=== PATIENT | male | born 1945 | race Caucasian/White ===

== ENCOUNTER → 2019-02-09 13:07 | Outpatient (CLI) | payer MEDICARE, SELFPAY ==
--- NOTE | 2019-02-09 | DI.MRI.S_ITS ---
PROCEDURE: MR KNEE RT WO CON INDICATIONS: Unilateral primary osteoarthritis, right knee TECHNIQUE: Noncontrast sagittal PD fast spin echo and T2 fast spin echo with fat saturation, sagittal 3-D FLASH with fat saturation; coronal T1 spin echo and PD fast spin echo with fat saturation, and axial PD fast spin echo with fat saturation through the knee. COMPARISON: None. FINDINGS: Image quality: Excellent. Menisci: There is near-complete absence of the lateral meniscus compatible severe chronic degenerative tearing. A Cruciate ligaments: The anterior cruciate ligament is absent compatible with chronic tear. The posterior cruciate ligament appears intact. The medial meniscus appears intact. Medial structures: The medial collateral ligament appears intact. The posterior oblique ligament, semimembranosus tendon insertions, oblique popliteal ligament, and meniscocapsular junction appear intact. Visualized portions of the pes anserinus tendons appear normal. No abnormal bursal fluid. Lateral structures: The lateral collateral ligament, long and short heads of the biceps femoris tendon appear intact. The popliteus tendon appears normal; the popliteofibular ligament appears intact. The posterosuperior and anteroinferior popliteomeniscal fascicles appear intact. The arcuate and fabellofibular ligaments appear intact, on either side of the lateral inferior geniculate artery. Iliotibial band appears normal. Anterior structures: The quadriceps and patellar tendons appear intact. The quadriceps tendon is mildly thickened with increased internal signal compatible with moderate tendinopathy. Patellar alignment is normal. No femoral trochlear dysplasia or ventral trochlear prominence. No edema in the infrapatellar fat pad. Bones and cartilage: No bone marrow contusions or fractures. Tricompartmental osteophytosis. There is full-thickness loss of articular cartilage in the lateral compartment. Moderate thinning and fissuring of articular cartilage in the patellofemoral compartment. There is mild thinning of articular cartilage in the medial compartment. Joint space: There is a large joint effusion. No Aldrich's cyst. Normal appearing synovial plicae are incidentally noted. IMPRESSION: 1. Severe lateral compartment, moderate patellofemoral compartment and mild medial compartment osteoarthritis with full-thickness loss of articular cartilage in the lateral compartment. 2. Chronic anterior cruciate ligament tear. 3. 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 4. Moderate quadriceps tendinopathy. 5. Large joint effusion. Dictated by: Seema Segal MD, PhD on 02/09/2019 at 15:46 Approved by: Seema Segal MD, PhD on 02/10/2019 at 10:55
== END ==
PROVIDERS: PCP Family Medicine; Visit Provider Orthopaedic Surgery
DX: M17.11 Unilateral primary osteoarthritis, right knee (principal); S83.511A Sprain of anterior cruciate ligament of right knee, initial encounter; S83.281A Other tear of lateral meniscus, current injury, right knee, initial encounter; M25.461 Effusion, right knee; M67.951 Unspecified disorder of synovium and tendon, right thigh
CPT/HCPCS: 73721

== ENCOUNTER 2019-03-16 14:23 | Observation (INO) | payer MEDICARE, SELFPAY ==
[2019-03-01 08:55] VITALS: BMI 20.7
[2019-03-15] VITALS (12 sets, daily range): BP systolic 142–171; BP diastolic 73–87; PULSE 63–87; RESP 13–18; TEMP 36.1–36.6; O2SAT 96–100; BMI 20.7
--- NOTE | 2019-03-15 11:10 | PM.PREOP ---
Pre-operative Note Interval Note History & Physical reviewed/Exam performed by Physician: Yes Changes to H&P: No
--- NOTE | 2019-03-15 11:13 | P.OP_ITS ---
Operative Date/Time/Diagnoses Date of procedure: 03/15/19 Time of procedure: 14:30 Pre-op diagnosis: Right knee osteoarthritis Post-op diagnosis: same Procedure & Clinicians Procedure: Right total knee arthroplasty Same procedure as scheduled: Yes Indications: The patient presents today for total knee arthroplasty after failure of conservative treatment. The nature of the procedure including the risks and benefits, alternatives, postoperative course and expected outcome were discussed and all questions answered. Consent was obtained. Operative site confirmed and marked. Surgeon: Papo Rodriguez Client Coordinator: Lionel Martinez Anesthesia Type: Spinal, Peripheral nerve block and Local Operative Notes Findings: Severe osteoarthritis with valgus alignment Closure Type: primary Specimen(s): none sent Prosthetic devices, grafts, tissues, transplants, or devices: [employer] BCS: 7 femoral component, 5 tibial component, 9 mm BCS polyethylene tray and 32 mm round patella Applied: implant(s) Estimated Blood Loss (mL): 20 Blood products transfused: none Tourniquet time (min): 62 Procedure in detail: The patient was taken to the operative suite and placed under spinal anesthesia with an adductor nerve block. The patient was given prophylactic antibiotics prior to surgery. The patient was also given tranexamic acid, 1 g, just prior to surgery for postoperative hemostasis. The lateral knee was prepped and the joint injected with 20 mL of 1% Lidocaine with epinephrine. The knee was then prepped and draped in usual sterile fashion. The leg was exsanguinated with an Esmarch dressing and the tourniquet raised to 250 torr. A 15 cm anterior incision was made. Next a medial trivector arthrotomy was made. The extensor mechanism was marked to ensure accurate repair. Initial exposing dissection was carried out medially and laterally. The knee was then extended and the patellar thickness was measured and a cut made removing approximately 9 mm of bone with a goal of restoring normal patellar thickness. The patella was then sized and drilled. Some excess lateral bone was excised and the patellofemoral ligament released. The tourniquet was then released. The knee was then flexed and the [employer] femoral guide was placed. The anterior pins were placed and the distal rotation holes drilled. The distal cutting guide was placed and a +2 distal femoral cut was made due to his flexion contracture. The templating cutting block was then placed and the anterior, posterior and chamfer cuts made. The [employer] tibial guide was placed and the alignment checked along the axis of the proximal tibial with a talib. The proximal tibial cut was then made with an oscillating saw. All meniscus and bony debris was then removed. Flexion extension gaps were checked. No specific balancing was required other than routine exposure and removal of osteophytes. The soft tissues were then injected with a combination of 20 mL of half percent Marcaine with epinephrine and 20 mL of Exparel. The trial components were then placed. The knee went into full extension and flexion beyond 120?. There was excellent medial- lateral balance throughout motion. Patellar tracking was excellent. The trial components were removed and size is confirmed for the final implants. The knee was then exsanguinated with an Esmarch dressing and the tourniquet reapplied for cementing. The knee was cleansed with Pulsavac irrigation and dried. The final components were cemented in with high viscosity vacuum mixed bone cement with antibiotics. The knee was held in extension and the patellar clamp until the cement had adequately cured. The knee was then irrigated with dilute Betadine solution. The extensor mechanism was closed with 5 interrupted #1 Vicryl sutures in 90 degrees of flexion. The joint was then injected with a combination of 1 g of tranexamic acid and 20 mL of quarter percent Marcaine with epinephrine. The subcutaneous tissue was closed with 2-0 Vicryl. The skin was closed with pablo and surgical adhesive. An Aquacel dressing and Thad wrap were then applied. Complications: none Condition: stable Disposition: PACU Plan for aftercare: [facility] protocol for total knee arthroplasty.
[2019-03-15] MEDS: LACTATED RINGERS 1,000 ML 42 ML IV ×2 (11:35→14:00)
--- NOTE | 2019-03-15 11:37 | DI.RAD.S_ITS ---
PROCEDURE: XR KNEE RT 1TO2V INDICATIONS: post op TECHNIQUE: 2 view(s) of the knee acquired. COMPARISON: None. FINDINGS: Bones: Patient is status post knee joint arthroplasty. Hardware components are in expected positions. Visualized bony structures are intact. Soft tissues: Overlying postoperative changes are noted. IMPRESSION: Expected postoperative appearance Dictated by: Mauri Agrawal M.D. on 03/15/2019 at 16:26 Approved by: Mauri Agrawal M.D. on 03/15/2019 at 16:27
[2019-03-15] MEDS: ACETAMINOPHEN 325 MG TABLET 975 MG PO ×3 (11:58→22:26)
[2019-03-15] MEDS: PREGABALIN 75 MG CAPSULE PO (11:58)
[2019-03-15] MEDS: CELECOXIB 200 MG CAPSULE PO (11:59)
--- NOTE | 2019-03-15 12:07 | SUR.OPER ---
Supine on padded OR bed. Pillow under head, arms secured on padded armboards <90 degree abduction. Safety belt across torso. Non-operative leg secured with tape over blanket over lower leg. Operative leg secured in DeMayo/Marbin positioner. Foam padded brace at thigh of operative leg.
[2019-03-15] MEDS: fentaNYL 100 MCG/2 ML INJ 50 MCG IV (12:45)
[2019-03-15] MEDS: MIDAZOLAM 2 MG/2 ML VIAL (12:47)
[2019-03-15] MEDS: CEFAZOLIN 2 GM/100 ML FROZ.PIGGY IV ×2 (12:55→20:37)
[2019-03-15] MEDS: LIDOCAINE 1% W/EPI INJ 20 ML INJ (13:35)
[2019-03-15] MEDS: BUPIVACAINE 0.25% W/ EPI (PF) 40 ML, BUPIVACAINE LIPOSOME 266 MG, SODIUM CHLORIDE 0.9% ... INJ (13:35)
[2019-03-15] MEDS: BUPIVACAINE 0.25% W/ EPI (PF) 20 ML, TRANEXAMIC ACID 1,000 MG, SODIUM CHLORIDE 0.9% 10 ML INJ (13:36)
[2019-03-15] MEDS: TRANEXAMIC ACID 1,000 MG VIAL 1000 MG INJ (13:37)
--- NOTE | 2019-03-15 16:01 | SUR.PHASEI ---
Pt transferred to room 221 in stable condition. Report given to NANI Tran at bedside
[2019-03-15] MEDS: LACTATED RINGERS 1,000 ML 125 ML IV (16:30)
[2019-03-15] MEDS: OXYCODONE IR 5 MG TABLET PO ×2 (17:26→19:57)
--- NOTE | 2019-03-15 19:40 | PC.NURSE ---
1600- Pt arrived to room 221 from PACU via bed. A/O x4, right knee aquacell/brie wrap, CDI, denies pain at this time, CMS- slight sensation to right foot, able to slightly wiggle toes, able to lift leg, left foot/leg wiggle toes, ankle pumps, full sensation, PP+, calf SCD's applied. VSS, 100%RA, LS clear, denies SOB. RFA LR @ 125. 1725- c/o pain 3-11/23, medicated with oxycodone 5mg PO, effective. Ate dinner, drinking fluids, reports comfortable. Bed alarm on, call light in reach.
[2019-03-15] MEDS: HYDROMORPHONE 0.5 MG INJ IV (20:30)
[2019-03-15] MEDS: SENNOSIDES 8.6 MG TABLET 17.2 MG PO (22:20)
[2019-03-15] MEDS: ASPIRIN EC 81 MG TABLET PO (22:25)
[2019-03-16] VITALS (7 sets, daily range): BP systolic 139–159; BP diastolic 72–89; PULSE 61–72; RESP 15–18; TEMP 35.8–36.9; O2SAT 94–99
[2019-03-16] MEDS: OXYCODONE IR 10 MG TABLET PO ×3 (01:11→12:09)
[2019-03-16] MEDS: LACTATED RINGERS 1,000 ML 125 ML IV ×3 (01:11→16:22)
--- NOTE | 2019-03-16 02:19 | PC.NURSE ---
Assumed care of pt at 2330 on 03/15/19. Pt sleeping during hand-off report. Awakens to voice for assessment. Drsg to R. Knee c/d/i with brie wrap. No drains present. CMS+. Denies numbness, able to wiggle toes and lift leg against gravity. PPP. brisk cap refill. BP elevated. Pt declines having hx of Htn. Medicating per mar for post-op pain. Pt reports medication has been effective. Using urinal in bed. Able to reposition independently in bed. This press writer enc to reposition frequently for PIP. Pt verbalized understanding. Refused to wear SCD's. VTE risks advised. Bed alarm on. Call light within reach.
[2019-03-16] MEDS: CEFAZOLIN 2 GM/100 ML FROZ.PIGGY IV (04:43)
[2019-03-16] MEDS: ONDANSETRON 4 MG/2 ML INJ IV ×2 (05:43→09:53)
[2019-03-16 05:59] LABS: Hematocrit 38.4 % (41-53); Hemoglobin 13.2 g/dL (13.5-17.5)
--- NOTE | 2019-03-16 10:06 | PC.NURSE ---
Addendum entered by Daniela Mera R.N. 03/16/19 13:17: Sat up in the chair for about an hour, assisted back to bed approx 1200 by this public relations writer. Medicated with 10 mg Oxycodone for R knee pain and 25 mg PO Vistaril for nausea at that time. Patient was able to eat about 50% of his lunch and is taking some PO liquids also. Resting quietly in bed at this time. Appears comfortable, no s/sx distress or discomfort. Respirations regular and unlabored. Emesis bag and call light within reach, bed alarm on. Prabha at bedside reading quietly. Addendum entered by Daniela Mera R.N. 03/16/19 10:48: Sitting up on edge of bed with PT, had emesis of 100 ml (yellowish fluid). Reports nausea seems a bit better after vomiting. Reports a little dizzy, BP sitting at edge of bed w/ systolic in the 130's. PT still with him at this time. Original Note: Shift summary: Awake and alert, oriented X3. Dressing to R knee C/D/I. Circulation/sensation WNL to BLE's, feet are pink and warm, cap refill <2 sec, PP+. Ice packs in place. C/O nausea, unable to eat breakfast, just taking very small sips of water. Patient initially hesitant to take anti-emetic, but eventually agreed to try Zofran which was admin by this public relations writer. IV fluids left running until nausea resolves and he's taking PO's without issue. Denies pain in RLE as long as I'm not moving it. Refusing SCD's r/t discomfort, ankle waving/pumping encouraged ongoing. Able to make needs known and calls appropriately. Light in reach, bed alarm on.
--- NOTE | 2019-03-16 10:15 | PT.IIE ---
Current Diagnoses Unilateral primary osteoarthritis, right knee (03/15/19) Surgery Performed Operation Date: 03/15/19 13:00 Actual Procedures p Total Knee Arthroplasty(Right) - Papo Rodriguez MD Surgical History (Last Updated 03/01/19 @ 09:19 by Laura Velez RN) H/O right knee surgery (Acute) H/O vasectomy (Acute) Hx of arthroscopy of left knee (Acute) Hx of arthroscopy of right knee (Acute) Hx of elbow surgery (Acute) Hx of shoulder surgery (Acute) Hx of transurethral resection of prostate (Acute) S/P foot surgery, right (Acute) Medical History (Last Updated 03/01/19 @ 09:19 by Laura Velez RN) Easy bruisability (Acute) Exercise-induced asthma (Acute) History of Mohs micrographic surgery for skin cancer (Acute) Osteoarthritis (Acute) Seasonal allergies (Acute) Sleep apnea (Acute) Physical Therapy Inpatient Evaluation/Re-Eval M1 PT/OT-IP Prior Functional Status Start: 03/16/19 13:03 Freq: NEEDED Status: Active Protocol: Document 03/16/19 10:15 AB (Rec: 03/16/19 13:14 AB [id number]) Medical Review Prior Functional Status Medical History Reviewed Yes Communication able to make needs known Mobility and Gait pt stated that he is indpeendent with all mobilities and ambulation without AD Social History Household Members spouse Living Arrangements House Number of Floors (Floors) One Floor Number of Stairs To Enter/Railing? ramp to enter Home Environment Tub/Shower Home Equipment Front Wheel Walker Raised Toilet Seat w/Armrests Shower Seat without Backrest Hand Held Shower Grab Bars In Shower Employment Status Retired M2 PT-IP Current Condition Start: 03/16/19 13:03 Freq: NEEDED Status: Active Protocol: Document 03/16/19 10:15 AB (Rec: 03/16/19 13:14 AB [id number]) Physical Therapy Current Condition Current Condition Evaluation Date 03/16/19 Treatment Diagnosis s/p R TKA; difficulty in walking Onset Date 03/15/19 Weight Bearing Status Weight Bearing Status Weight Bear as Tolerated M3 PT-IP Subjective Start: 03/16/19 13:03 Freq: NEEDED Status: Active Protocol: Document 03/16/19 10:15 AB (Rec: 03/16/19 13:14 [id number]) Subjective Physical Therapy Visit Type Type Initial Evaluation Visit Start Time 10:15 Visit Stop Time 10:59 Total Visit Minutes 44 Number of DENTAL APPLIANCE REPAIRER Visits 0 Physical Therapy Visit Comments Patient Comments pt c/o nausea but agreed to get out of bed Therapy Pain Assessment Pain When Pain Assessed During Mobility Pain Present Pain Present Pain Reported Location right knee Intensity 7 Scale Used Numeric (1 - 10) Pain Management Techniques Apply Cold Re-positioning Timing of Activity with Medications M4 PT-IP Mobility and Gait Start: 03/16/19 13:03 Freq: NEEDED Status: Active Protocol: Document 03/16/19 10:15 AB (Rec: 03/16/19 13:14 [id number]) PT-Bed Mobility Assessment Supine to Sit Supine to Sit Minimal Assistance Scooting Scooting to Edge of Bed Standby Assistance PT-Transfer Assessment Sit to and From Stand Sit to and from Stand Minimal Assistance 1 Person Assistance Use of Upper Extremities Equipment Transfer Assistive Device Gait Belt Front Wheeled Walker Orthotic/Prosthetic Devices or Brace: No Transfers Transfer Destination Chair Transfer Technique pt ambulated using FWW Transfer Ability Level of Assist Minimal Assistance 1 Person Assistance Use of Upper Extremities Comments Mobility Comments BP: 155/80 pt completed supine to sit min a and cues. pt was able to sit on EOB SBA . c/o nausea with (+) emesis. BP: 139/70. pt completed sit to stand min A and c/o continued dizziness. instructed to sit back down. BP checked: 151/78. pt agreed to get up again min A and ambulated towards the chair using FWW min A and cues. positioned pt on chair. call light and table placed within reach. BP: 152/80 Left pt with spouse in room Gait Assessment Gait Gait Assistance Required: Minimum Assistance Distance (Feet) 12 Able to Maintain Weight Bearing Status Yes During Gait Assistive Devices Assistive Device Gait Belt Front Wheeled Walker Orthotic/Prosthetic Devices or Brace: No Gait Deviations General Gait Pattern Antalgic Decreased Stride Length Decreased Feet Clearance Factors Limiting Gait Function Factors Limiting Gait Function Decreased Activity Tolerance Decreased Strength Pain Poor Balance Poor Safety Awareness PT-Balance Assessment Sitting Balance and Reactions Static Sitting Balance Ability Good Dynamic Sitting Balance Ability Good Standing Balance and Reactions Static Standing Balance Ability Fair Dynamic Standing Balance Ability Fair Device Used FWW M5 PT-IP Objective Assessments Start: 03/16/19 13:03 Freq: NEEDED Status: Active Protocol: Document 03/16/19 10:15 AB (Rec: 03/16/19 13:14 AB [id number]) Orientation Orientation/Cognition Level of Alertness Alert Orientation Name Place Situation Language Function Ability Hard of Hearing Safety Awareness Decreased Safety Awareness Memory Description Short Term Impaired Gross Range of Motion Lower Extremity ROM Assessment Right Impaired Impairments R knee: ~ up to 50 deg of flexion and extension lacking ~ 20 deg Strength Lower Extremity Strength Assessment Right Impaired Hip 4-/5 Knee 3+/5 Coordination Assessment Gross Coordination Gross Coordination WNL Sensation Assessment Sensation Gross Sensation WNL Muscle Tone Muscle Tone WNL Yes M6 PT-IP Treatment Start: 03/16/19 13:03 Freq: NEEDED Status: Active Protocol: Document 03/16/19 10:15 AB (Rec: 03/16/19 13:14 AB [id number]) Physical Therapy Treatment Exercises Exercises Quad Sets Heel Slides Education Education Provided Precautions Weight Bearing Status Post-Op Packet Safety M7 PT-IP Assessment and Plan Start: 03/16/19 13:03 Freq: NEEDED Status: Active Protocol: Document 03/16/19 10:15 AB (Rec: 03/16/19 13:14 AB [id number]) PT Summary Assessment and Plan Potential Rehabilitation Potential Good Status of Condition at Evaluation Evolving Summary Impairments Pain ROM Strength Balance Coordination Sensation Tone Cognition Bed Mobility Transfers Gait Activity Tolerance Assessment Summary pt requiring one person assist with mobility. pt with c/o increase pain affecting mobility. pt's mobility progress depending on pain control. pt plans to go home with spouse to assist him. will continue to assess. Goals Bed Mobility Goal Independent Transfer Goal Independent Front Wheeled Walker Gait Goal Independent Front Wheel Walker Gait Distance 200 Days to Meet Goals 5 Frequency of Treatment Frequency Of Treatment Twice a Day Treatment Plan Physical Therapy Treatment Plan Bed Mobility Training Transfer Training Gait Training Therapeutic Exercise Balance Retraining Post Op Education Discharge Planning Hot or Cold Pack Neuromuscular Re-ed Coordination Retraining Manual Therapy Other Recommendations and Next Treatment ambulation Focus Recommendations To Nursing Amount of Assist Needed 1 Person Assist Discharge Recommendations PT Discharge Recommendations Home with Assistance Outpatient PT
--- NOTE | 2019-03-16 11:28 | PM.PNPO.1 ---
Subjective Date Patient Seen: 03/16/19 Time Patient Seen: 11:29 Interval history: Hospital day 2, postop day 1 following right total knee arthroplasty by Dr. Rodriguez. Patient has had nausea off and on since last night. This came on after starting his doses of Ancef and also from IV Dilaudid. Still notes some nausea this morning. He is otherwise remained stable postoperatively. Taking oxycodone and meloxicam for pain. He has a [facility] path patient. He has not had physical therapy yet. He is scheduled to go to [facility] in [place]. Exam Vital Signs (past 8 hours): - 03/16/19 04:25 03/16/19 07:15 Temperature 97.4 F L 96.4 F L Pulse Rate 64 66 Respiratory Rate 18 16 Blood Pressure 153/89 H 151/84 H Pulse Oximetry 99 99 Oxygen Delivery Method Room Air Oxygen Flow Rate 0 Narrative Exam Narrative: Alert, oriented in no acute distress but complaining of nausea lying in bed. Legs. Thad wrap an Aquacel dressing to right knee are dry without drainage or inflammation. No calf pain or swelling. Pulses symmetrical. Objective Labs Result Diagrams: 03/16/19 05:25 Labs: Laboratory Results - last 24 hr 03/16/19 05:25 Hgb 13.2 L Hct 38.4 L Assessment & Plan Post-op Postoperative Procedures Operation Date: 03/15/19 13:00 Actual Procedures Side Surgeon p Total Knee Arthroplasty Right Papo Rodriguez MD Plan: Patient will work with PT today. Will add Vistaril to see if this may help with his nausea and pain. Anticipate discharge home tomorrow if he is stable.
--- NOTE | 2019-03-16 11:31 | P.PN_ITS ---
Subjective Date Patient Seen: 03/16/19 Time Patient Seen: 11:29 Interval history: Hospital day 2, postop day 1 following right total knee arthroplasty by Dr. Rodriguez. Patient has had nausea off and on since last night. This came on after starting his doses of Ancef and also from IV Dil audid. Still notes some nausea this morning. He is otherwise remained stable postoperatively. Taking oxycodone and meloxicam for pain. He has a [facility] path patient. He has not had physical therapy yet. He is scheduled to go to [facility] PT in [place]. Exam Vital Signs (past 8 hours): - 03/16/19 04:25 03/16/19 07:15 Temperature 97.4 F L 96.4 F L Pulse Rate 64 66 Respiratory Rate 18 16 Blood Pressure 153/89 H 151/84 H Pulse Oximetry 99 99 Oxygen Delivery Method Room Air Oxygen Flow Rate 0 Narrative Exam Narrative: Alert, oriented in no acute distress but complaining of nausea lying in bed. Legs. Thad wrap an Aquacel dressing to right knee are dry without drainage or inflammation. No calf pain or swelling. Pulses symmetrical. Objective Labs Result Diagrams: 03/16/19 05:25 Labs: Laboratory Results - last 24 hr 03/16/19 05:25 Hgb 13.2 L Hct 38.4 L Assessment & Plan Post-op Postoperative Procedures Operation Date: 03/15/19 13:00 Actual Procedures Side Surgeon p Total Knee Arthroplasty Right Papo Rodriguez MD Plan: Patient will work with PT today. Will add Vistaril to see if this may help with his nausea and pain. Anticipate discharge home tomorrow if he is stable.
[2019-03-16] MEDS: hydrOXYzine pamoate 25 MG CAPSULE PO (12:09)
--- NOTE | 2019-03-16 12:09 | CM.IDA ---
Initial DCP Assessment Note: Pt is a 73 yo male, resident of [facility], now POD#1 from Rt knee surgery w/ Dr Rodriguez PCP: Kvng Oconnell [facility] Review[facility] chart, pt discussed in multidisciplinary rounds this morning, pt has been very nauseous s/p knee surgery yesterday, PT pending, and pt will likely remain here tonight. Met w/pt this morning, explained role. Pt admits he is still quite tired and nauseated. Pt has planned for home w/spouse Prabha upon DC. No needs expected from DC planning team although will remain available in case this changes. PT eval still pending. JOAQUÍN Chavez Discharge Planning/Care Management CM Discharge Assessment Start: 03/16/19 12:07 Freq: Status: Active Protocol: Document 03/16/19 12:07 FABIAN (Rec: 03/16/19 12:09 FABIAN [id number]) Discharge Planning Assessment Assigned Firmware Engineer JOAQUÍN Quintanilla DPOA/Assigned Designee Name Prabha Burden, spouse Contact Information [phone] Advance Directives? Yes Advance Directives on File No History Provided By Patient Significant Other Prior Living Arrangements Mobile home Household Members spouse Type of transporation used prior to Drives own vehicle admit Independent with ADL's Yes Is patient alert and oriented? Yes Patient/Family Preference OP PT Therapy Barriers to Discharge No Discharge Plan Home Transportation Arrangement Family Referrals Initiated None needed Whiteboard Updated in Patient Room with Yes name and ext. # of Firmware Engineer Review Status In Process
--- NOTE | 2019-03-16 15:02 | PT.IPTN ---
Current Diagnoses Unilateral primary osteoarthritis, right knee (03/15/19) Surgery Performed Operation Date: 03/15/19 13:00 Actual Procedures p Total Knee Arthroplasty(Right) - Papo Rodriguez MD Physical Therapy Treatment Note M2 PT-IP Current Condition Start: 03/16/19 13:03 Freq: NEEDED Status: Active Protocol: Document 03/16/19 10:15 AB (Rec: 03/16/19 13:14 AB [id number]) Physical Therapy Current Condition Current Condition Evaluation Date 03/16/19 Treatment Diagnosis s/p R TKA; difficulty in walking Onset Date 03/15/19 Weight Bearing Status Weight Bearing Status Weight Bear as Tolerated M3 PT-IP Subjective Start: 03/16/19 13:03 Freq: NEEDED Status: Active Protocol: Document 03/16/19 14:30 CLB (Rec: 03/16/19 15:02 CLB [id number]) Subjective Physical Therapy Visit Type Type Treatment Note Visit Start Time 14:30 Visit Stop Time 14:50 Total Visit Minutes 20 Number of LAUNDRY MACHINE TENDER Visits 1 Physical Therapy Visit Comments Patient Comments Pt agreeable to try to get OOB . Therapy Pain Assessment Pain When Pain Assessed During Mobility Pain Present Pain Present Pain Reported M4 PT-IP Mobility and Gait Start: 03/16/19 13:03 Freq: NEEDED Status: Active Protocol: Document 03/16/19 14:30 CLB (Rec: 03/16/19 15:02 CLB [id number]) PT-Bed Mobility Assessment Supine to Sit Supine to Sit Minimal Assistance Scooting Scooting to Edge of Bed Standby Assistance PT-Transfer Assessment Comments Mobility Comments Pt c/o nausea and feeling drugged and didn't feel like he could stand safely. Pt was assisted back to supine with Min A of RLE. Gait Assessment Comments Gait Comments unable due to nausea and feeling groggy. M5 PT-IP Objective Assessments Start: 03/16/19 13:03 Freq: NEEDED Status: Active Protocol: Document 03/16/19 10:15 AB (Rec: 03/16/19 13:14 AB [id number]) Orientation Orientation/Cognition Level of Alertness Alert Orientation Name Place Situation Language Function Ability Hard of Hearing Safety Awareness Decreased Safety Awareness Memory Description Short Term Impaired Gross Range of Motion Lower Extremity ROM Assessment Right Impaired Impairments R knee: ~ up to 50 deg of flexion and extension lacking ~ 20 deg Strength Lower Extremity Strength Assessment Right Impaired Hip 4-/5 Knee 3+/5 Coordination Assessment Gross Coordination Gross Coordination WNL Sensation Assessment Sensation Gross Sensation WNL Muscle Tone Muscle Tone WNL Yes M6 PT-IP Treatment Start: 03/16/19 13:03 Freq: NEEDED Status: Active Protocol: Document 03/16/19 14:30 CLB (Rec: 03/16/19 15:02 CLB [id number]) Physical Therapy Treatment Exercises Exercises Quad Sets Heel Slides M7 PT-IP Assessment and Plan Start: 03/16/19 13:03 Freq: NEEDED Status: Active Protocol: Document 03/16/19 14:30 CLB (Rec: 03/16/19 15:02 CLB [id number]) PT Summary Assessment and Plan Summary Impairments Pain ROM Strength Balance Coordination Sensation Tone Cognition Bed Mobility Transfers Gait Activity Tolerance Assessment Summary Pt required Min A of RLE supine<>sit. Pt unable to stand or ambulate due to nausea and feeling too groggy. RN notified of pts nausea and immobility. Goals Bed Mobility Goal Independent Transfer Goal Independent Front Wheeled Walker Gait Goal Independent Front Wheel Walker Gait Distance 200 Days to Meet Goals 5 Frequency of Treatment Frequency Of Treatment Twice a Day Treatment Plan Physical Therapy Treatment Plan Bed Mobility Training Transfer Training Gait Training Therapeutic Exercise Balance Retraining Post Op Education Discharge Planning Hot or Cold Pack Neuromuscular Re-ed Coordination Retraining Manual Therapy Recommendations To Nursing Amount of Assist Needed 1 Person Assist Discharge Recommendations PT Discharge Recommendations Home with Assistance Outpatient PT
[2019-03-16] MEDS: ACETAMINOPHEN 325 MG TABLET 975 MG PO ×2 (15:06→21:13)
[2019-03-16] MEDS: OXYCODONE IR 5 MG TABLET PO ×2 (16:05→21:13)
[2019-03-16] MEDS: SENNOSIDES 8.6 MG TABLET 17.2 MG PO (21:13)
[2019-03-16] MEDS: ASPIRIN EC 81 MG TABLET PO (21:13)
[2019-03-17] MEDS: OXYCODONE IR 5 MG TABLET PO (02:04)
[2019-03-17 03:38] VITALS: BP 144/67; PULSE 72; RESP 18; TEMP 36.4; O2SAT 96
--- NOTE | 2019-03-17 04:25 | PC.NURSE ---
Shift Summary PO Day 2 s/p R TKA. Assumed care of pt at 2300. Per evening RN, LR 125 mL/h was kept running due to vomiting this am. D/c'd this shift as pt had no subsequent episodes of emesis, was drinking fluids consistently, and new 2+ RLE pitting edema noted. Pt denied nausea. Reported 4-5/10 pain in R knee and was given 5 mg oxycodone, per request. The bed alarm was triggered when the pt impulsively stood out of bed to go to the bathroom. He seemed confused and did not realize he was in the hospital. Reoriented to place and situation and reinforced fall prevention education. Returned to bed with bed alarm on and educated last ironer light use.
[2019-03-17 08:00] VITALS: BP 151/80; PULSE 77; RESP 17; TEMP 37.2; O2SAT 98
[2019-03-17] MEDS: ACETAMINOPHEN 325 MG TABLET 975 MG PO (08:38)
[2019-03-17] MEDS: MELOXICAM 7.5 MG TABLET 15 MG PO (08:38)
[2019-03-17] MEDS: DOCUSATE 100 MG CAPSULE PO (08:39)
[2019-03-17] MEDS: ASPIRIN EC 81 MG TABLET PO (08:39)
[2019-03-17] MEDS: LORATADINE 10 MG TABLET PO (08:40)
[2019-03-17] MEDS: ONDANSETRON 4 MG/2 ML INJ IV (08:40)
[2019-03-17] MEDS: SODIUM CHLORIDE 0.9% FLUSH 10 ML IV (08:40)
--- NOTE | 2019-03-17 11:40 | PT.IPTN ---
Current Diagnoses Unilateral primary osteoarthritis, right knee (03/15/19) Surgery Performed Operation Date: 03/15/19 13:00 Actual Procedures p Total Knee Arthroplasty(Right) - Papo Rodriguez MD Physical Therapy Treatment Note M2 PT-IP Current Condition Start: 03/16/19 13:03 Freq: NEEDED Status: Active Protocol: Document 03/16/19 10:15 AB (Rec: 03/16/19 13:14 AB [id number]) Physical Therapy Current Condition Current Condition Evaluation Date 03/16/19 Treatment Diagnosis s/p R TKA; difficulty in walking Onset Date 03/15/19 Weight Bearing Status Weight Bearing Status Weight Bear as Tolerated M3 PT-IP Subjective Start: 03/16/19 13:03 Freq: NEEDED Status: Active Protocol: Document 03/17/19 10:20 LJ (Rec: 03/17/19 11:40 LJ [id number]) Subjective Physical Therapy Visit Type Type Treatment Note Visit Start Time 10:20 Visit Stop Time 10:45 Total Visit Minutes 25 Physical Therapy Visit Comments Patient Comments Pt sitting in chair wanting to get up and walk in hallway Therapy Pain Assessment Pain When Pain Assessed During Mobility Pain Present Pain Present Pain Reported M4 PT-IP Mobility and Gait Start: 03/16/19 13:03 Freq: NEEDED Status: Active Protocol: Document 03/17/19 10:20 LJ (Rec: 03/17/19 11:40 LJ [id number]) PT-Transfer Assessment Sit to and From Stand Sit to and from Stand Standby Assistance Use of Upper Extremities Equipment Transfer Assistive Device Gait Belt Front Wheeled Walker Orthotic/Prosthetic Devices or Brace: No Transfers Transfer Destination Chair Transfer Technique Stand Step Pivot Transfer Ability Level of Assist Standby Assistance Use of Upper Extremities Comments Mobility Comments Pt no longer nauseus or dizzy. States he has been up moving in room by himself w/o nursing . Able to perform transfers with SBA. Gait Assessment Gait Gait Assistance Required: Standby Assistance Distance (Feet) 150 Assistive Devices Assistive Device Gait Belt Front Wheeled Walker Gait Deviations General Gait Pattern Antalgic Decreased Stride Length Decreased Feet Clearance Factors Limiting Gait Function Factors Limiting Gait Function Decreased Activity Tolerance Decreased Strength Pain Poor Balance Poor Safety Awareness Comments Gait Comments Pt ambulates in hallway with good gait mechanics and safety awareness. M5 PT-IP Objective Assessments Start: 03/16/19 13:03 Freq: NEEDED Status: Active Protocol: Document 03/16/19 10:15 AB (Rec: 03/16/19 13:14 AB [id number]) Orientation Orientation/Cognition Level of Alertness Alert Orientation Name Place Situation Language Function Ability Hard of Hearing Safety Awareness Decreased Safety Awareness Memory Description Short Term Impaired Gross Range of Motion Lower Extremity ROM Assessment Right Impaired Impairments R knee: ~ up to 50 deg of flexion and extension lacking ~ 20 deg Strength Lower Extremity Strength Assessment Right Impaired Hip 4-/5 Knee 3+/5 Coordination Assessment Gross Coordination Gross Coordination WNL Sensation Assessment Sensation Gross Sensation WNL Muscle Tone Muscle Tone WNL Yes M6 PT-IP Treatment Start: 03/16/19 13:03 Freq: NEEDED Status: Active Protocol: Document 03/17/19 10:20 AMANDEEP (Rec: 03/17/19 11:40 AMANDEEP [id number]) Physical Therapy Treatment Exercises Exercises Quad Sets Heel Slides M7 PT-IP Assessment and Plan Start: 03/16/19 13:03 Freq: NEEDED Status: Active Protocol: Document 03/17/19 10:20 AMANDEEP (Rec: 03/17/19 11:40 AMANDEEP [id number]) PT Summary Assessment and Plan Summary Impairments Pain ROM Strength Balance Coordination Sensation Tone Bed Mobility Transfers Gait Activity Tolerance Assessment Summary Pt able to perform all transfers and gait with safety awareness and good mechanics. SBA during tx. Goals Bed Mobility Goal Independent Transfer Goal Independent Front Wheeled Walker Gait Goal Independent Front Wheel Walker Gait Distance 200 Days to Meet Goals 5 Frequency of Treatment Frequency Of Treatment Twice a Day Treatment Plan Physical Therapy Treatment Plan Bed Mobility Training Transfer Training Gait Training Therapeutic Exercise Balance Retraining Post Op Education Discharge Planning Hot or Cold Pack Neuromuscular Re-ed Coordination Retraining Manual Therapy Recommendations To Nursing Amount of Assist Needed Standby Assistance Discharge Recommendations PT Discharge Recommendations Home with Assistance Outpatient PT
--- NOTE | 2019-03-17 13:50 | PT.IPTN ---
Current Diagnoses Unilateral primary osteoarthritis, right knee (03/16/19) Surgery Performed Operation Date: 03/15/19 13:00 Actual Procedures p Total Knee Arthroplasty(Right) - Papo Rodriguez MD Physical Therapy Treatment Note M2 PT-IP Current Condition Start: 03/16/19 13:03 Freq: NEEDED Status: Discharge Protocol: Document 03/16/19 10:15 AB (Rec: 03/16/19 13:14 AB [id number]) Physical Therapy Current Condition Current Condition Evaluation Date 03/16/19 Treatment Diagnosis s/p R TKA; difficulty in walking Onset Date 03/15/19 Weight Bearing Status Weight Bearing Status Weight Bear as Tolerated M3 PT-IP Subjective Start: 03/16/19 13:03 Freq: NEEDED Status: Discharge Protocol: Document 03/17/19 13:50 AB (Rec: 03/17/19 15:04 AB [id number]) Subjective Physical Therapy Visit Type Type Treatment Note Visit Start Time 13:50 Visit Stop Time 14:22 Total Visit Minutes 32 Number of RESIDENTIAL BUILDER Visits 0 Physical Therapy Visit Comments Patient Comments pt want to do stairs. on eval , pt stated that he will use the ramp to get in/out of the house but wants to see how he does with stairs before he goes home. M4 PT-IP Mobility and Gait Start: 03/16/19 13:03 Freq: NEEDED Status: Discharge Protocol: Document 03/17/19 13:50 AB (Rec: 03/17/19 15:04 AB [id number]) PT-Transfer Assessment Sit to and From Stand Sit to and from Stand Standby Assistance Equipment Transfer Assistive Device Gait Belt Front Wheeled Walker Gait Assessment Gait Gait Assistance Required: Standby Assistance Contact Guard Assist Distance (Feet) 75 Able to Maintain Weight Bearing Status Yes During Gait Assistive Devices Assistive Device Gait Belt Front Wheeled Walker Orthotic/Prosthetic Devices or Brace: No Gait Deviations General Gait Pattern Flexed Trunk Factors Limiting Gait Function Factors Limiting Gait Function Decreased Strength Limited Range of Motion Pain Poor Balance Poor Safety Awareness Stair Climbing Assessment Evaluation Level of Assist On Stairs Contact Guard Assistance Minimal Assistance Devices Stair Climbing Assistive Devices Right Railing Technique/Endurance Stair Climbing Direction Ascend and Descend Stair Climbing Technique Step to Step Number of Steps Climbed 3 Stair Climbing Set # Repetitions (reps) 1 Comments Stair Climbing Comments pt requiring CGA and cues for stair climbing M5 PT-IP Objective Assessments Start: 03/16/19 13:03 Freq: NEEDED Status: Discharge Protocol: Document 03/16/19 10:15 AB (Rec: 03/16/19 13:14 AB [id number]) Orientation Orientation/Cognition Level of Alertness Alert Orientation Name Place Situation Language Function Ability Hard of Hearing Safety Awareness Decreased Safety Awareness Memory Description Short Term Impaired Gross Range of Motion Lower Extremity ROM Assessment Right Impaired Impairments R knee: ~ up to 50 deg of flexion and extension lacking ~ 20 deg Strength Lower Extremity Strength Assessment Right Impaired Hip 4-/5 Knee 3+/5 Coordination Assessment Gross Coordination Gross Coordination WNL Sensation Assessment Sensation Gross Sensation WNL Muscle Tone Muscle Tone WNL Yes M6 PT-IP Treatment Start: 03/16/19 13:03 Freq: NEEDED Status: Discharge Protocol: Document 03/17/19 13:50 AB (Rec: 03/17/19 15:04 AB [id number]) Physical Therapy Treatment Education Education Provided Safety M7 PT-IP Assessment and Plan Start: 03/16/19 13:03 Freq: NEEDED Status: Discharge Protocol: Document 03/17/19 13:50 AB (Rec: 03/17/19 15:04 AB [id number]) PT Summary Assessment and Plan Potential Rehabilitation Potential Good Summary Impairments Pain ROM Strength Balance Coordination Sensation Tone Cognition Bed Mobility Transfers Gait Activity Tolerance Progress Towards Goals Progressing Toward Goals Assessment Summary pt doing well with mobility and will be going home today with sposue to assist him. Goals Bed Mobility Goal Independent Transfer Goal Independent Front Wheeled Walker Gait Goal Independent Front Wheel Walker Gait Distance 200 Days to Meet Goals 5 Frequency of Treatment Frequency Of Treatment Twice a Day Treatment Plan Physical Therapy Treatment Plan Bed Mobility Training Transfer Training Gait Training Therapeutic Exercise Balance Retraining Post Op Education Discharge Planning Hot or Cold Pack Neuromuscular Re-ed Coordination Retraining Manual Therapy Recommendations To Nursing Amount of Assist Needed 1 Person Assist Discharge Recommendations PT Discharge Recommendations Home with Assistance Outpatient PT
--- NOTE | 2019-03-17 14:15 | PC.NURSE ---
Pt discharged via staff escort in wheelchair to car with . IV removed without incident, dc instructions reviewed, verbalized understanding of knee replacement instructions, medications, signs and symptoms of infection, stroke. All belongings with patient/. Times and dosages of all dc meds reviewed.
--- NOTE | 2019-03-17 16:11 | CM.DPNOTE ---
DC Note: DC home today w/spouse, as expected, no barriers. JW
== END 2019-03-17 14:25 | disposition home or self-care (01) ==
LOC: AC 03-17 12:55 → OR 03-17 14:38 → AC 03-17 14:38 → OR 03-17 14:40
PROVIDERS: Admitting Provider Orthopaedic Surgery; PCP Family Medicine; Visit Provider Orthopaedic Surgery
PROC: 0SRC0JZ Replacement of Right Knee Joint with Synthetic Substitute, Open Approach (ICD-10-PCS; CPT 27447; principal; 2019-03-15 13:00)
DX: M17.11 Unilateral primary osteoarthritis, right knee (principal); R11.0 Nausea
CPT/HCPCS: 27447; 36415; 73560; 85014; 85018; 97110; 97116; 97161; 97530; C1776; G0378; C9290; J0690; J1170; J2250; J2405; J2704; J3010